=== PATIENT | male | born 1995 | race Caucasian/White ===

== ENCOUNTER 2017-08-12 18:08 | Emergency (ER) | payer OTHER, SELFPAY ==
[2017-08-12 18:10] VITALS: BP 150/72; PULSE 68; RESP 16; TEMP 37.1; O2SAT 99; BMI 31.3
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
[2017-08-12] MEDS: Diphth,Pertuss(Acell),Tet Vac 0.5 ML Vial IM (18:59)
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
[2017-08-12 20:54] VITALS: RESP 18
== END 2017-08-12 20:56 | disposition home or self-care (01) ==
PROVIDERS: Emergency Provider Emergency Medicine; Family Provider Family Medicine; PCP Family Medicine
DX: S60.212A Contusion of left wrist, initial encounter (principal); S60.812A Abrasion of left wrist, initial encounter; V89.2XXA Person injured in unspecified motor-vehicle accident, traffic, initial encounter; Y93.9 Activity, unspecified; Y92.9 Unspecified place or not applicable; J30.2 Other seasonal allergic rhinitis
CPT/HCPCS: 73110; 90471; 90715; 99282